=== PATIENT | female | born 1965 | race African-American/Black ===

== ENCOUNTER 2025-05-09 14:24 | Emergency (ER) | payer MEDICAID ==
[~2025-05-09] VITALS: Ht 170.2 cm; Wt 50.0 kg
[2025-05-09 15:07] LABS: HEMATOCRIT. 46.3 % (36.0-48.0); HEMOGLOBIN. 15.8 g/dL (12.0-16.0); MEAN PLATELET VOLUME 7.8 fl (7.4-10.4); PLATELET 215 x1000/uL (130-400); RED BLOOD CELL COUNT 5.04 mill/uL (4.2-5.4); RED CELL DISTRIBUTION WIDTH 14.0 % (11.6-14.6)
[2025-05-09 15:11] VITALS: TEMP 36.4
[2025-05-09 15:23] LABS: CREATININE 0.8 mg/dL (0.6-1.0); UREA NITROGEN BLOOD 11 mg/dL (9-23)
[2025-05-09 15:24] LABS: TROPONIN I HIGH SENSITIVITY < 4 ng/L (3.0-34)
[2025-05-09] MEDS: KETOROLAC 15MG/ML VIAL IM ONE (16:12)
[2025-05-09] MEDS: ONDANSETRON HCL 4MG/2ML INJ IV ONE (16:12)
[2025-05-09] MEDS: SODIUM CHLORIDE 0.9% 1,000 ML IV ONE (16:12)
[2025-05-09] MEDS: PREDNISONE 20MG TABLET PO ONE (16:12)
[2025-05-09] MEDS: ALBUTEROL (0.083%) 2.5MG/3ML NEB HHN ONE (16:18)
[2025-05-09] MEDS: IPRATROPIUM BROMIDE (0.02%) 0.5MG/2.5ML NEB HHN ONE (16:19)
[2025-05-09 16:20] VITALS: PULSE 98; RESP 18; O2SAT 96
[2025-05-09] MEDS: CEFTRIAXONE 1GM/50ML 50 ML IV ONE (16:33)
[2025-05-09 16:35] LABS: ETHANOL BLOOD < 10 mg/dL (<10)
[2025-05-09 16:36] LABS: ASPARTATE AMINOTRANSFERASE 21 IU/L (<34); BILIRUBIN DIRECT 0.7 mg/dL (<=3.0); BILIRUBIN TOTAL 2.1 mg/dL (0.1-1.0)
[2025-05-09 16:37] LABS: PROTEIN TOTAL 7.3 g/dL (6.0-8.3)
[2025-05-09] MEDS: SODIUM CHLORIDE 0.9% (SEPSIS BOLUS) IV ONE (16:37)
[2025-05-09 16:39] LABS: TROPONIN I HIGH SENSITIVITY < 4 ng/L (3.0-34)
[2025-05-09 17:07] LABS: BAND% 4.0 % (1.0-6.0); LYMPHOCYTES % MANUAL 12.0 % (20.0-60.0); MONOCYTES % MANUAL 3.0 % (2.0-8.0); NEUTROPHILS % MANUAL 81.0 % (45.0-75.0); PLATELET ESTIMATE NORMAL
[2025-05-09] MEDS: AZITHROMYCIN 500MG/250ML 250 ML IV ONE (17:54)
[2025-05-09] MEDS ORDERED: AZIT250T12 MT (17:56)
[2025-05-09] MEDS ORDERED: AMOX1TAB16 MT (17:56)
[2025-05-09] MEDS ORDERED: IBUP-2029 MT (17:56)
[2025-05-09] MEDS ORDERED: ALBU18HF2 IH (17:56)
[2025-05-09 18:01] LABS: INFLUENZA TYPE A Presumptive Negative (Pres. Neg.); INFLUENZA TYPE B Presumptive Negative (Pres. Neg.)
[2025-05-09 18:55] VITALS: BP 115/77; PULSE 95; RESP 23; O2SAT 96
== END 2025-05-09 19:18 | disposition home or self-care (01) ==
LOC: ER 14:24
DX: J18.9 Pneumonia, unspecified organism (principal); F17.200 Nicotine dependence, unspecified, uncomplicated; Z79.899 Other long term (current) drug therapy; Z20.822 Contact with and (suspected) exposure to COVID-19
CPT/HCPCS: 80076; 80048; 80320; 83605; 83690; 85025; 87040; 84484; 87804 ×2; 36415; 84145; 71045; 74176; 94640; 93005; 96367; 96365; 96372; 96375; 99285; 87426; J7512; J0456; J0696; J1885; J2405; Z7610 ×5; J7030; 94664; A4606; G0480

== ENCOUNTER 2025-06-08 10:31 | Emergency (ER) | payer MEDICAID ==
[~2025-06-08] VITALS: Ht 157.5 cm; Wt 41.0 kg
[~2025-06-08 10:31] MED LIST: ALBU18HF2 IH; AMOX1TAB16 MT; AZIT250T12 MT; IBUP-2029 MT
[2025-06-08 10:43] VITALS: O2SAT 98
[2025-06-08 11:09] VITALS: BP 136/92; PULSE 71; RESP 18; TEMP 36.8; O2SAT 100
== END 2025-06-08 11:15 | disposition home or self-care (01) ==
LOC: ER 10:31
DX: N64.52 Nipple discharge (principal); Z79.899 Other long term (current) drug therapy
CPT/HCPCS: 99282